=== PATIENT | male | born 1950 | race Caucasian/White ===

== ENCOUNTER 2016-08-14 07:15 | Inpatient (IN) | payer OTHER ==
[2016-07-23 10:48] VITALS: BMI 38.7
[2016-07-23 11:43] VITALS: BP_SYST 130; RESP 20; TEMP 98.4
[2016-07-30 10:41] VITALS: BP_SYST 130; RESP 20; TEMP 98.4
[2016-07-30 12:01] VITALS: Ht 177.8 cm; Wt 122.5 kg
[2016-08-14] VITALS (22 sets, daily range): BP systolic 127–169; RESP 13–26; TEMP 97.7–99.6
[~2016-08-14] VITALS: Ht 177.8 cm; Wt 122.5 kg
[2016-08-14] MEDS ORDERED: LACT RINGERS 1,000 ML IV SCH ×2 (09:25→14:30)
[2016-08-14] MEDS ORDERED: MIDAZOLAM 2 MG/2 ML INJ IV ONE ×2 (09:25→12:25)
[2016-08-14] MEDS ORDERED: GLYCOPYRROLATE 0.2 MG/ML VIAL IV ONE ×2 (09:25→10:02)
[2016-08-14] MEDS ORDERED: LIDOCAINE 1% BUFFERED 1 ML SYR INTRADERM PRN (09:25)
[2016-08-14] MEDS ORDERED: BACITRACIN 50,000 UNITS INJ IRRIG ONE (09:42)
[2016-08-14] MEDS ORDERED: ED CLINDAMYCIN PREMIX 50 ML IV ONE (09:42)
[2016-08-14] MEDS ORDERED: PROPOFOL 20 ML VIAL IV ONE (10:02)
[2016-08-14] MEDS ORDERED: ROCURONIUM 50 MG VIAL IV ONE (10:02)
[2016-08-14] MEDS ORDERED: NEOSTIGMINE 10 MG/10 ML VIAL IV ONE (10:02)
[2016-08-14] MEDS ORDERED: ONDANSETRON 4 MG VIAL IV PUSH ONE (10:02)
[2016-08-14] MEDS ORDERED: FENTANYL 250 MCG/5 ML AMP IV ONE (10:02)
[2016-08-14] MEDS ORDERED: DEXAMETHASONE 4 MG/ML VIAL IV ONE (10:02)
[2016-08-14] MEDS ORDERED: MORPHINE SUBQ ONE ×3 (10:20)
[2016-08-14] MEDS ORDERED: EPINEPHRINE SUBQ ONE ×3 (10:20)
[2016-08-14] MEDS ORDERED: ROPIVACAINE SUBQ ONE ×3 (10:20)
[2016-08-14] MEDS: VANCOMYCIN 1,750 MG in SODIUM CHLORIDE 0.9% 500 ML IV ONE ×2 (11:57→12:01)
[2016-08-14] MEDS ORDERED: MIDAZOLAM 2 MG/2 ML INJ ONE (12:06)
[2016-08-14] MEDS ORDERED: ONDANSETRON 4 MG VIAL IV PRN ×2 (13:05→14:30)
[2016-08-14] MEDS ORDERED: OXYCODONE 5 MG TAB PO PRN (13:05)
[2016-08-14] MEDS ORDERED: MEPERIDINE 25 MG/ML IV PRN (13:05)
[2016-08-14] MEDS ORDERED: MORPHINE 4 MG/ML SYR IV PRN ×2 (13:05→14:30)
[2016-08-14] MEDS ORDERED: MORPHINE 2 MG/ML SYR IV PRN ×2 (13:05→14:30)
[2016-08-14] MEDS ORDERED: BUPIVACA/EPI 0.25% PF 30ML EPIDURAL ONE (14:15)
[2016-08-14] MEDS ORDERED: ACETAMINOPHEN 325 MG TAB PO PRN (14:30)
[2016-08-14] MEDS ORDERED: DIPHENHYDRAMINE 25 MG CAP PO PRN (14:30)
[2016-08-14] MEDS: DILAUDID 1 MG/ML AMP IV PRN ×2 (16:03→16:20)
[2016-08-14] MEDS: DOCUSATE SOD 100 MG CAP PO SCH (21:30)
[2016-08-14] MEDS: FAMOTIDINE 40 MG TAB PO SCH (21:31)
[2016-08-14] MEDS ORDERED: SALINE FLUSH 10 ML FLUSH PRN (23:00)
[2016-08-14] MEDS: VANCOMYCIN 1,500 MG in SODIUM CHLORIDE 0.9% 250 ML IV SCH (23:45)
[2016-08-15] VITALS (7 sets, daily range): BP systolic 106–139; RESP 14–20; TEMP 98–99.7
[2016-08-15] MEDS: SODIUM CHLORIDE 0.9% FLUSH BAG 500 ML IV SCH (05:56)
[2016-08-15] MEDS: FONDAPARINUX 2.5 MG SYR SUBQ SCH (05:56)
[2016-08-15] MEDS ORDERED: MISSING DOSE XX ONE (08:40)
[2016-08-15] MEDS: SENNA 8.6 MG TAB PO SCH ×2 (08:44→22:16)
[2016-08-15] MEDS: SALINE FLUSH 10 ML FLUSH SCH ×2 (08:45→22:18)
[2016-08-15] MEDS: POLYETHYLENE GLYCOL 17 GM PACKET PO SCH (08:45)
[2016-08-15] MEDS: Losartan 25 MG TAB PO SCH (08:45)
[2016-08-15] MEDS: ASPIRIN 81 MG CHEW TAB PO SCH (08:45)
[2016-08-15] MEDS: DOCUSATE SOD 100 MG CAP PO SCH ×2 (08:52→22:16)
[2016-08-15] MEDS ORDERED: MAG HYDROX 30 ML UDC PO SCH (09:00)
[2016-08-15] MEDS: VANCOMYCIN 1,500 MG in SODIUM CHLORIDE 0.9% 250 ML IV SCH (12:12)
[2016-08-15] MEDS: HCTZ 25 MG TAB PO SCH (17:35)
[2016-08-15] MEDS: TEMAZEPAM 15 MG CAP PO PRN (22:16)
[2016-08-15] MEDS: FAMOTIDINE 40 MG TAB PO SCH (22:16)
[2016-08-15] MEDS ORDERED: BISACODYL 10 MG SUPP RECTAL PRN (23:00)
[2016-08-15] MEDS ORDERED: FLEET ENEMA 132 ML BTL RECTAL PRN (23:00)
[2016-08-16] VITALS (7 sets, daily range): BP systolic 93–135; RESP 18–20; TEMP 98.4–99.2
[2016-08-16] MEDS: SODIUM CHLORIDE 0.9% FLUSH BAG 500 ML IV SCH (05:13)
[2016-08-16] MEDS: FONDAPARINUX 2.5 MG SYR SUBQ SCH (06:11)
[2016-08-16] MEDS: DOCUSATE SOD 100 MG CAP PO SCH ×2 (09:43→21:04)
[2016-08-16] MEDS: SALINE FLUSH 10 ML FLUSH SCH ×2 (09:43→21:04)
[2016-08-16] MEDS: ASPIRIN 81 MG CHEW TAB PO SCH (09:43)
[2016-08-16] MEDS: HCTZ 25 MG TAB PO SCH (09:44)
[2016-08-16] MEDS: SENNA 8.6 MG TAB PO SCH ×2 (09:44→21:04)
[2016-08-16] MEDS: Losartan 25 MG TAB PO SCH (09:44)
[2016-08-16] MEDS: OXYCODONE/APAP 7.5/325 TAB PO PRN ×3 (09:44→21:07)
[2016-08-16] MEDS: POLYETHYLENE GLYCOL 17 GM PACKET PO SCH (09:44)
[2016-08-16] MEDS: MAG HYDROX 30 ML UDC PO SCH ×2 (09:44→20:00)
[2016-08-16] MEDS: TEMAZEPAM 15 MG CAP PO PRN (21:04)
[2016-08-16] MEDS: FAMOTIDINE 40 MG TAB PO SCH (21:04)
[2016-08-17] MEDS: OXYCODONE/APAP 7.5/325 TAB PO PRN ×3 (02:56→12:44)
[2016-08-17 03:27] VITALS: BP_SYST 131; RESP 20; TEMP 98.3
[2016-08-17] MEDS: SODIUM CHLORIDE 0.9% FLUSH BAG 500 ML IV SCH (05:06)
[2016-08-17] MEDS: FONDAPARINUX 2.5 MG SYR SUBQ SCH (05:32)
[2016-08-17 07:30] VITALS: BP_SYST 123; RESP 20; TEMP 98.4
[2016-08-17] MEDS: SALINE FLUSH 10 ML FLUSH SCH (08:28)
[2016-08-17] MEDS: MAG HYDROX 30 ML UDC PO SCH (08:28)
[2016-08-17] MEDS: POLYETHYLENE GLYCOL 17 GM PACKET PO SCH (08:29)
[2016-08-17] MEDS: SENNA 8.6 MG TAB PO SCH (08:30)
[2016-08-17] MEDS: HCTZ 25 MG TAB PO SCH (08:30)
[2016-08-17] MEDS: ASPIRIN 81 MG CHEW TAB PO SCH (08:30)
[2016-08-17] MEDS: Losartan 25 MG TAB PO SCH (08:30)
[2016-08-17] MEDS: DOCUSATE SOD 100 MG CAP PO SCH (08:30)
[2016-08-17 10:08] VITALS: BP_SYST 123; RESP 20; TEMP 98.4
[2016-08-17 12:00] VITALS: BP_SYST 119; RESP 18; TEMP 98.1
== END 2016-08-17 14:30 | disposition home health service (06) | DRG 462 ==
LOC: SDS 09:02 → ENPENDDIS 09:02 → 2NO 16:35
PROVIDERS: ADMIT Internal Medicine; ATTEND Internal Medicine
PROC: 0SRC0J9 Replacement of Right Knee Joint with Synthetic Substitute, Cemented, Open Approach (ICD-10-PCS; 2016-08-14)
PROC: 3E0T3CZ (ICD-10-PCS; 2016-08-14)
PROC: 0SRD0J9 Replacement of Left Knee Joint with Synthetic Substitute, Cemented, Open Approach (ICD-10-PCS; principal; 2016-08-14 12:00)
DX: M17.0 Bilateral primary osteoarthritis of knee (principal); I10 Essential (primary) hypertension; Z86.718 Personal history of other venous thrombosis and embolism; Z79.82 Long term (current) use of aspirin; K21.9 Gastro-esophageal reflux disease without esophagitis; R09.02 Hypoxemia
CPT/HCPCS: 80048; 85014; 85018; 85025; 86850; 86900; 86901; 94799; 99222; 99223; 99232; 99238